=== PATIENT | female | born 1990 | race Caucasian/White ===

== ENCOUNTER → 2016-08-11 | Outpatient (CLI) | payer OTHER ==
[~2016-08-11] MED LIST: COCONUT OIL 2525 ML PO; NORCO 325 MG-51 TAB PO; ZOFRAN ODT4 MG PO
== END ==
LOC: COL.RAD 15:38
DX: N83.201 Unspecified ovarian cyst, right side (principal)

== ENCOUNTER → 2016-11-20 | Outpatient (CLI) | payer OTHER | LOC: COL.RAD 09:45 | DX: N83.8 Other noninflammatory disorders of ovary, fallopian tube and broad ligament (principal) ==

== ENCOUNTER → 2017-03-27 | Outpatient (CLI) | payer OTHER | LOC: COL.RAD 03-23 15:45 | DX: N83.8 Other noninflammatory disorders of ovary, fallopian tube and broad ligament (principal) ==

== ENCOUNTER 2018-04-14 16:15 | Emergency (ER) | payer OTHER ==
[~2018-04-14] VITALS: Ht 165.1 cm; Wt 65.9 kg
[2018-04-14 16:23] VITALS: BP 116/67; PULSE 98
[2018-04-14] MEDS ORDERED: ZITHROMAX Z PA250 MG PO (18:29)
[2018-04-14 19:02] VITALS: TEMP 101.5
[2018-04-14] MEDS ORDERED: NYQUIL GENERIC PO (19:04)
== END 2018-04-14 19:06 | disposition home or self-care (01) ==
LOC: COL.ER 16:15
DX: J06.9 Acute upper respiratory infection, unspecified (principal); Z90.89 Acquired absence of other organs